=== PATIENT | female | born 1960 | race Caucasian/White ===

== ENCOUNTER → 2021-07-11 12:41 | Outpatient (CLI) | payer BC, SELFPAY ==
--- NOTE | 2021-07-11 | DI.US.S_ITS ---
PROCEDURE: US ABDOMEN LIMITED INDICATIONS: ABNORMAL LIVER FUNCTION TESTS TECHNIQUE: Real-time focused scanning was performed of the abdomen, with image documentation. COMPARISON: None. FINDINGS: Normally distended gallbladder. Few areas of the gallbladder wall or mildly thickened up to 6 mm with suspected submucosal edema and mural stratification. There is no shadowing gallstone or sludge. No pericholecystic fluid. The roster clerk reports a negative sonographic Jim's sign. Diffusely increased hepatic parenchymal echogenicity. Normal appendix echotexture. No intrahepatic or extrahepatic biliary ductal dilatation. The common duct measures 2 mm at the noemi hepatis. Visualized portions of the pancreas are normal. IMPRESSION: Diffusely increased hepatic parenchymal echogenicity which likely reflects at least moderate hepatic steatosis. Focal thickening of the gallbladder wall near the gallbladder neck, nonspecific. In the absence of right upper quadrant pain, leukocytosis, and other clinical evidence of cholecystitis, this is likely artifactual or related to gallbladder contraction. Dictated by: Vern Cobb M.D. on 07/11/2021 at 14:00 Approved by: Vern Cobb M.D. on 07/11/2021 at 14:02
== END ==
PROVIDERS: PCP Internal Medicine; Referring Provider Internal Medicine; Visit Provider Internal Medicine
DX: R79.89 Other specified abnormal findings of blood chemistry (principal)
CPT/HCPCS: 76705

== ENCOUNTER → 2021-10-27 17:32 | Outpatient (CLI) | payer BC, SELFPAY ==
--- NOTE | 2021-10-27 17:36 | DI.MRI.S_ITS ---
PROCEDURE: MR LUMBAR SPINE WO CON INDICATIONS: SPONDYLOSIS WITHOUT MYELOPATHY OR RADICULOPATHY TECHNIQUE: Noncontrast sagittal T1 spin echo and T2 fast echo, sagittal STIR, and T2 fast spin echo through the lumbar spine. In cases with scoliosis, additional coronal T2 fast spin echo may be performed. COMPARISON: [facility], , L-SPINE WITHOUT CONTRAST, 05/16/2015, 16:49. FINDINGS: Image quality: Excellent. Alignment and Curvature: There is normal bony alignment. Mild convex left lumbar scoliosis present. Bone Marrow: Degenerative chronic endplate changes noted particularly at L2-3, L3-4 and L5-S1 Spinal Cord: Conus medullaris terminates at the L1 level. Visualized cord demonstrates normal signal and size. Paraspinous Soft Tissues: No paravertebral masses. T12-L1: Normal appearance. L1-L2: Normal appearance. L2-L3: Normal appearance. L3-L4: Disc space narrowing with circumferential disc bulge and ligamentum flavum laxity results in moderate central stenosis. Moderate right and mild left foraminal stenosis L4-L5: Disc space narrowing with asymmetric left disc bulge effaces the left lateral recess. Mild central stenosis. No right stenosis. Moderate to severe left foraminal stenosis. L5-S1: Disc space narrowing and asymmetric left disc bulge with hypertrophic facet joints present. No central stenosis. No right and moderate to severe left foraminal stenosis IMPRESSION: 1. Multilevel degenerative disc disease and arthropathy results in varying degrees of central and foraminal stenosis including moderate to severe left foraminal stenosis at L4-5 and L5-S1, similar to the prior exam Approved by: Rashard Amezcua M.D. on 10/29/2021 at 8:37
== END ==
PROVIDERS: PCP Internal Medicine; Referring Provider Orthopaedic Surgery; Visit Provider Orthopaedic Surgery
DX: M51.36 Other intervertebral disc degeneration, lumbar region; M51.37 Other intervertebral disc degeneration, lumbosacral region; M48.061 Spinal stenosis, lumbar region without neurogenic claudication; M48.07 Spinal stenosis, lumbosacral region
CPT/HCPCS: 72148